=== PATIENT | male | born 1970 | race Caucasian/White ===

== ENCOUNTER 2021-04-14 15:02 | Emergency (ER) | payer OTHER ==
[~2021-04-14] VITALS: Ht 177.8 cm; Wt 117.9 kg
[2021-04-14] MEDS ORDERED: ZPAK PO (16:13)
[2021-04-14 16:18] VITALS: BP 125/63
--- NOTE | 2021-04-15 07:19 | EKG ---
[address] [address] ELECTROCARDIOGRAM REPORT Name: ROGER BLANCAS Room #: 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: [facility] : 1970 Requested By: Kell Ann Order Number: [id number] MD: Bryn Edmond Measurements Intervals [place] Rate: 89 P: 52 MO: 145 QRS: 27 QRSD: 103 T: 71 QT: 344 QTc: 419 Interpretive Statements Sinus rhythm Atrial premature complex Probable left atrial enlargement No previous ECG available for comparison Electronically Signed On 04-15-2021 7:19:31 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
== END 2021-04-14 16:18 | disposition home or self-care (01) ==
LOC: ER 15:02
DX: U07.1 COVID-19 (principal); J12.82 Pneumonia due to coronavirus disease 2019; Z91.018 Allergy to other foods